=== PATIENT | female | born 1955 | race Caucasian/White ===

== ENCOUNTER 2021-01-05 10:02 | Emergency (ER) | payer OTHER, MEDICARE ==
[2021-01-05] MEDS ORDERED: Iopamidol 370 76% 100 ML VIAL ONE (10:47)
[2021-01-05] MEDS ORDERED: Morphine 10 MG/ML VIAL ONE (11:46)
[2021-01-05 11:48] LABS: #Basophils 0.1 thou/uL (0.0-0.2); #Eosinphils 0.1 thou/uL (0.0-0.7); #Lymphocytes 1.8 thou/uL (1.20-3.40); #Monocytes 0.7 thou/uL (0.11-0.59); #Neutrophils 10.6 thou/uL (1.40-6.50); %Basophils 0.6 % (0.0-1.0); %Eosinophils 0.5 % (0.0-10.0); %Lymphocytes 13.2 % (21.0-51.0); %Monocytes 5.5 % (0.0-10.0); %Neutrophils 80.1 % (42.0-75.0); Hemoglobin 14.1 g/dL (12.0-16.0); Mean Corpuscular HGB CONC 30.4 g/dL (32.0-36.0); Mean Corpuscular Hemoglobin 27.5 pg (27.0-31.0); Mean Corpuscular Volume 90.4 fL (78.0-98.0); Mean Platelet Volume 8.2 fL (7.4-10.4); Platelet Count 275 thou/uL (130-400); RBC Distribution Width 13.5 % (11.5-14.5); Red Blood Cell (RBC) Count 5.11 mill/uL (4.20-5.40); White Blood Cell (WBC) Count 13.3 thou/uL (4.8-10.8)
[2021-01-05 12:04] LABS: ALT (SGPT) 122 U/L (8-55); AST (SGOT) 125 U/L (5-34); Albumin 4.4 g/dL (3.4-4.8); Alkaline Phosphatase 89 U/L (40-110); Anion Gap 19 mmol/L (10-20); BUN (Urea Nitrogen) 13 mg/dL (9.8-20.1); Bilirubin, Total 0.6 mg/dL (0.2-1.2); CK (CPK) 421 U/L (29-168); Calc. Creatinine Clearance 0 mL/min (70-130); Carbon Dioxide 21 mmol/L (23-31); Chloride 102 mmol/L (98-107); Globulin 3.5 g/dL (2.4-3.5); Glucose 129 mg/dL (80-115); Lipase 49 U/L (8-78); Potassium 3.8 mmol/L (3.5-5.1); Protein, Total 7.9 g/dL (5.8-8.1); Sodium 138 mmol/L (136-145)
== END 2021-01-05 13:29 | disposition short-term general hospital (02) ==
LOC: MADERS 10:02
DX: S22.41XA Multiple fractures of ribs, right side, initial encounter for closed fracture (principal); I10 Essential (primary) hypertension; E78.5 Hyperlipidemia, unspecified; Z79.899 Other long term (current) drug therapy; V43.52XA Car driver injured in collision with other type car in traffic accident, initial encounter
CPT/HCPCS: 70450; 71260; 72125; 74177; 80053; 82550; 83690; 85025; 96374; J2270; Q9967

== ENCOUNTER 2021-01-08 20:25 | Inpatient (IN) | payer OTHER, MEDICARE ==
[2021-01-08] MEDS ORDERED: Senokot S 8.6-50 MG TAB PO SCH (21:45)
[2021-01-08] MEDS ORDERED: Atorvastatin Calcium 10 MG TAB PO SCH (21:45)
[2021-01-08] MEDS ORDERED: Gabapentin 300 MG CAP PO SCH (21:45)
[2021-01-08 22:02] VITALS: BMI 44.7
[2021-01-08] MEDS: Cyclobenzaprine 10 MG TAB PO PRN (22:37)
[2021-01-09] MEDS: Acetaminophen 500 MG TAB PO SCH ×4 (00:26→18:15)
[2021-01-09] MEDS: Ibuprofen 400 MG TAB PO SCH ×3 (01:55→18:14)
[2021-01-09 05:47] LABS: Eosinophils 3 % (0-10); Hemoglobin 13.5 g/dL (12.0-16.0); Lymphocytes 35 % (21-51); MDiff Complete? YES; Mean Corpuscular HGB CONC 31.5 g/dL (32.0-36.0); Mean Corpuscular Volume 88.7 fL (78.0-98.0); Mean Platelet Volume 8.1 fL (7.4-10.4); Monocytes 4 % (0-10); Neutrophil 58 % (42-75); Platelet Count 228 thou/uL (130-400); Platelet Morphology Comment Appears Adequate; RBC Distribution Width 12.8 % (11.5-14.5); RBC Morphology Normal; Red Blood Cell (RBC) Count 4.83 mill/uL (4.20-5.40); White Blood Cell (WBC) Count 11.1 thou/uL (4.8-10.8)
[2021-01-09 05:49] LABS: Anion Gap 20 mmol/L (10-20); BUN (Urea Nitrogen) 14 mg/dL (9.8-20.1); Calc. Creatinine Clearance 128 mL/min (70-130); Carbon Dioxide 24 mmol/L (23-31); Chloride 97 mmol/L (98-107); Glucose 106 mg/dL (80-115); Sodium 136 mmol/L (136-145)
[2021-01-09 05:59] LABS: Potassium 4.7 mmol/L (3.5-5.1)
[2021-01-09] MEDS ORDERED: predniSONE 1 MG TAB PO PRN (08:00)
[2021-01-09] MEDS: Polyethylene Glycol 3350 17 GM Packet PO SCH (08:52)
[2021-01-09] MEDS: Senokot S 8.6-50 MG TAB PO SCH ×2 (08:52→23:31)
[2021-01-09] MEDS: traMADol HCl 50 MG TAB PO PRN ×2 (08:53→19:44)
[2021-01-09] MEDS: Gabapentin 300 MG CAP PO SCH ×3 (08:53→21:00)
[2021-01-09] MEDS: Hydrochlorothiazide 25 MG TAB PO SCH (08:53)
[2021-01-09] MEDS ORDERED: CALCIUM/MAGNESIUM PO SCH (09:00)
[2021-01-09] MEDS: Cyclobenzaprine 10 MG TAB PO PRN (09:09)
[2021-01-09] MEDS ORDERED: Lidocaine 5% Patch TD PRN (13:22)
[2021-01-09] MEDS: Atorvastatin Calcium 10 MG TAB PO SCH (21:00)
[2021-01-10] MEDS: Acetaminophen 500 MG TAB PO SCH ×4 (00:37→17:47)
[2021-01-10] MEDS: Ibuprofen 400 MG TAB PO SCH ×3 (02:12→17:48)
[2021-01-10] MEDS: Gabapentin 300 MG CAP PO SCH ×3 (09:18→21:26)
[2021-01-10] MEDS: Polyethylene Glycol 3350 17 GM Packet PO SCH (09:18)
[2021-01-10] MEDS: Senokot S 8.6-50 MG TAB PO SCH ×2 (09:19→21:27)
[2021-01-10] MEDS: Hydrochlorothiazide 25 MG TAB PO SCH (09:19)
[2021-01-10] MEDS: Cyclobenzaprine 10 MG TAB PO PRN (10:32)
[2021-01-10] MEDS ORDERED: Bisacodyl 5 MG TAB PO PRN (15:44)
[2021-01-10] MEDS: traMADol HCl 50 MG TAB PO PRN (21:25)
[2021-01-10] MEDS: Atorvastatin Calcium 10 MG TAB PO SCH (21:27)
[2021-01-11] MEDS: Acetaminophen 500 MG TAB PO SCH ×4 (00:14→17:43)
[2021-01-11] MEDS: Ibuprofen 400 MG TAB PO SCH ×3 (02:11→17:43)
[2021-01-11] MEDS: Cyclobenzaprine 10 MG TAB PO PRN ×3 (03:45→21:50)
[2021-01-11] MEDS: traMADol HCl 50 MG TAB PO PRN (03:45)
[2021-01-11] MEDS: Gabapentin 300 MG CAP PO SCH ×3 (08:34→20:03)
[2021-01-11] MEDS: Hydrochlorothiazide 25 MG TAB PO SCH (08:34)
[2021-01-11] MEDS: Senokot S 8.6-50 MG TAB PO SCH ×2 (08:34→20:03)
[2021-01-11] MEDS: Polyethylene Glycol 3350 17 GM Packet PO SCH (08:35)
[2021-01-11] MEDS: Atorvastatin Calcium 10 MG TAB PO SCH (20:03)
[2021-01-12] MEDS: Acetaminophen 500 MG TAB PO SCH ×4 (00:53→17:45)
[2021-01-12] MEDS: Ibuprofen 400 MG TAB PO SCH ×3 (00:55→17:46)
[2021-01-12] MEDS: traMADol HCl 50 MG TAB PO PRN ×2 (04:06→16:56)
[2021-01-12] MEDS: Senokot S 8.6-50 MG TAB PO SCH ×2 (09:00→20:47)
[2021-01-12] MEDS: Hydrochlorothiazide 25 MG TAB PO SCH (09:00)
[2021-01-12] MEDS: Polyethylene Glycol 3350 17 GM Packet PO SCH (09:00)
[2021-01-12] MEDS: Gabapentin 300 MG CAP PO SCH ×3 (09:17→20:46)
[2021-01-12] MEDS: Atorvastatin Calcium 10 MG TAB PO SCH (20:46)
[2021-01-12] MEDS: Cyclobenzaprine 10 MG TAB PO PRN (20:47)
[2021-01-13] MEDS: Acetaminophen 500 MG TAB PO SCH ×4 (00:55→17:29)
[2021-01-13] MEDS: Ibuprofen 400 MG TAB PO SCH ×3 (03:04→17:28)
[2021-01-13] MEDS: traMADol HCl 50 MG TAB PO PRN ×2 (05:10→19:38)
[2021-01-13] MEDS: Polyethylene Glycol 3350 17 GM Packet PO SCH (09:04)
[2021-01-13] MEDS: Gabapentin 300 MG CAP PO SCH ×3 (09:06→21:21)
[2021-01-13] MEDS: Hydrochlorothiazide 25 MG TAB PO SCH (09:06)
[2021-01-13] MEDS: Senokot S 8.6-50 MG TAB PO SCH ×2 (09:06→21:21)
[2021-01-13] MEDS: Cyclobenzaprine 10 MG TAB PO PRN ×2 (10:48→21:21)
[2021-01-13] MEDS: Atorvastatin Calcium 10 MG TAB PO SCH (21:21)
[2021-01-14] MEDS: Acetaminophen 500 MG TAB PO SCH ×4 (01:07→17:22)
[2021-01-14] MEDS: Ibuprofen 400 MG TAB PO SCH ×3 (03:35→17:23)
[2021-01-14] MEDS: Hydrochlorothiazide 25 MG TAB PO SCH (08:23)
[2021-01-14] MEDS: Senokot S 8.6-50 MG TAB PO SCH ×2 (08:23→21:12)
[2021-01-14] MEDS: Polyethylene Glycol 3350 17 GM Packet PO SCH (08:23)
[2021-01-14] MEDS: Gabapentin 300 MG CAP PO SCH ×3 (08:23→21:12)
[2021-01-14] MEDS: Cyclobenzaprine 10 MG TAB PO PRN ×2 (10:28→21:12)
[2021-01-14] MEDS: Atorvastatin Calcium 10 MG TAB PO SCH (21:12)
[2021-01-15] MEDS: Acetaminophen 500 MG TAB PO SCH ×4 (01:22→17:20)
[2021-01-15] MEDS: Ibuprofen 400 MG TAB PO SCH ×3 (04:37→17:19)
[2021-01-15] MEDS: traMADol HCl 50 MG TAB PO PRN (06:01)
[2021-01-15] MEDS: Hydrochlorothiazide 25 MG TAB PO SCH (08:26)
[2021-01-15] MEDS: Gabapentin 300 MG CAP PO SCH ×3 (08:27→20:26)
[2021-01-15] MEDS: Polyethylene Glycol 3350 17 GM Packet PO SCH (08:28)
[2021-01-15] MEDS: Cyclobenzaprine 10 MG TAB PO PRN ×2 (08:28→20:27)
[2021-01-15] MEDS: Senokot S 8.6-50 MG TAB PO SCH ×2 (08:30→20:27)
[2021-01-15] MEDS ORDERED: Transdermal Patch Removal TOP PRN (13:16)
[2021-01-15] MEDS ORDERED: Lidocaine 5% Patch TD SCH (15:00)
[2021-01-15] MEDS: Atorvastatin Calcium 10 MG TAB PO SCH (20:27)
[2021-01-16] MEDS: Acetaminophen 500 MG TAB PO SCH ×5 (00:44→23:17)
[2021-01-16] MEDS: Ibuprofen 400 MG TAB PO SCH ×3 (02:56→17:43)
[2021-01-16] MEDS ORDERED: Transdermal Patch Removal TOP SCH (03:00)
[2021-01-16] MEDS: Hydrochlorothiazide 25 MG TAB PO SCH (09:28)
[2021-01-16] MEDS: Lidocaine 5% Patch TD SCH (09:28)
[2021-01-16] MEDS: Polyethylene Glycol 3350 17 GM Packet PO SCH (09:28)
[2021-01-16] MEDS: Gabapentin 300 MG CAP PO SCH ×3 (09:29→19:59)
[2021-01-16] MEDS: Senokot S 8.6-50 MG TAB PO SCH ×2 (09:29→19:59)
[2021-01-16] MEDS: Cyclobenzaprine 10 MG TAB PO PRN (09:29)
[2021-01-16] MEDS: Atorvastatin Calcium 10 MG TAB PO SCH (19:59)
[2021-01-16] MEDS: Transdermal Patch Removal TOP SCH (20:00)
[2021-01-17] MEDS: Ibuprofen 400 MG TAB PO SCH ×3 (01:54→17:48)
[2021-01-17] MEDS: Acetaminophen 500 MG TAB PO SCH ×3 (05:28→17:48)
[2021-01-17] MEDS: Gabapentin 300 MG CAP PO SCH ×3 (09:33→21:01)
[2021-01-17] MEDS: Hydrochlorothiazide 25 MG TAB PO SCH (09:33)
[2021-01-17] MEDS: Lidocaine 5% Patch TD SCH (09:34)
[2021-01-17] MEDS: Polyethylene Glycol 3350 17 GM Packet PO SCH (09:34)
[2021-01-17] MEDS: Senokot S 8.6-50 MG TAB PO SCH (09:38)
[2021-01-17] MEDS ORDERED: Senokot S 8.6-50 MG TAB PO PRN (11:18)
[2021-01-17] MEDS: Atorvastatin Calcium 10 MG TAB PO SCH (21:01)
[2021-01-17] MEDS: Transdermal Patch Removal TOP SCH (21:02)
[2021-01-17] MEDS: Cyclobenzaprine 10 MG TAB PO PRN (21:02)
[2021-01-18] MEDS: Acetaminophen 500 MG TAB PO SCH ×3 (01:05→12:04)
[2021-01-18] MEDS: Ibuprofen 400 MG TAB PO SCH ×2 (02:19→09:52)
[2021-01-18] MEDS: traMADol HCl 50 MG TAB PO PRN (05:25)
[2021-01-18] MEDS: Lidocaine 5% Patch TD SCH (08:31)
[2021-01-18] MEDS: Gabapentin 300 MG CAP PO SCH ×2 (08:32→16:03)
[2021-01-18] MEDS: Hydrochlorothiazide 25 MG TAB PO SCH (08:32)
[2021-01-18] MEDS: Polyethylene Glycol 3350 17 GM Packet PO SCH (08:56)
[2021-01-18 09:15] VITALS: BP 129/84; TEMP 97.9
== END 2021-01-18 16:45 | disposition home or self-care (01) | DRG 560 ==
LOC: MADMS 20:25 → UNDOADMIN 21:22
PROVIDERS: ADMIT Family Medicine; ATTEND Family Medicine
DX: S22.41XD Multiple fractures of ribs, right side, subsequent encounter for fracture with routine healing (principal); Z68.42 Body mass index [BMI] 45.0-49.9, adult; E78.5 Hyperlipidemia, unspecified; G47.33 Obstructive sleep apnea (adult) (pediatric); I10 Essential (primary) hypertension; R53.81 Other malaise; E66.9 Obesity, unspecified; V89.2XXD Person injured in unspecified motor-vehicle accident, traffic, subsequent encounter; Z87.891 Personal history of nicotine dependence; Z88.5 Allergy status to narcotic agent; Z79.899 Other long term (current) drug therapy
CPT/HCPCS: 36415; 72100; 80048; 85025

== ENCOUNTER 2021-11-28 09:42 | Emergency (ER) | payer MEDICARE, OTHER ==
[2021-11-28] MEDS ORDERED: Sodium Chloride 0.9% 500 ML ONE (10:36)
[2021-11-28 10:38] LABS: Bilirubin Negative (Negative); Blood, Urine Trace (Negative); Clarity Clear (Clear); Glucose, Urine (Dipstick) Negative (Negative); Ketone, Urine Negative (Negative); Leukocyte Negative (Negative); Nitrite Negative (Negative); Protein, Urine (Dipstick) Negative (Neg-Trace); Urobilinogen 0.2 mg/dL (Less than 2); pH, Urine 6.5 (5.0-9.0)
[2021-11-28 10:39] LABS: Specific Gravity, Urine 1.004 (1.002-1.036)
[2021-11-28 10:53] LABS: Bacteria/HPF Rare-Few HPF (None Seen); RBC/HPF 0-3 HPF (0-3); Squamous Epithelial 0-3 HPF (0-3); WBC/HPF 0-3 HPF (0-3)
[2021-11-28 10:55] LABS: #Basophils 0.1 thou/uL (0.0-0.2); #Lymphocytes 1.6 thou/uL (1.20-3.40); #Monocytes 1.1 thou/uL (0.11-0.59); #Neutrophils 14.3 thou/uL (1.40-6.50); %Basophils 0.6 % (0.0-1.0); %Lymphocytes 9.3 % (21.0-51.0); %Monocytes 6.6 % (0.0-10.0); %Neutrophils 83.4 % (42.0-75.0); Mean Corpuscular HGB CONC 31.3 g/dL (32.0-36.0); Mean Corpuscular Hemoglobin 27.1 pg (27.0-31.0); Mean Corpuscular Volume 86.5 fL (78.0-98.0); Platelet Count 234 thou/uL (130-400); RBC Distribution Width 13.3 % (11.5-14.5); Red Blood Cell (RBC) Count 4.79 mill/uL (4.20-5.40); White Blood Cell (WBC) Count 17.1 thou/uL (4.8-10.8)
[2021-11-28 11:04] LABS: ALT (SGPT) 41 U/L (8-55); AST (SGOT) 21 U/L (5-34); Albumin 4.3 g/dL (3.4-4.8); Alkaline Phosphatase 74 U/L (40-110); Anion Gap 15 mmol/L (10-20); BUN (Urea Nitrogen) 15 mg/dL (9.8-20.1); Bilirubin, Total 1.1 mg/dL (0.2-1.2); Calc. Creatinine Clearance 0 mL/min (70-130); Calcium 8.8 mg/dL (7.8-10.44); Carbon Dioxide 26 mmol/L (23-31); Chloride 100 mmol/L (98-107); Glucose 131 mg/dL (80-115); Potassium 3.6 mmol/L (3.5-5.1); Protein, Total 7.3 g/dL (5.8-8.1); Sodium 137 mmol/L (136-145)
== END 2021-11-28 11:35 | disposition home or self-care (01) ==
LOC: MADERS 09:42
DX: J03.90 Acute tonsillitis, unspecified (principal); E78.5 Hyperlipidemia, unspecified; I10 Essential (primary) hypertension; Z79.899 Other long term (current) drug therapy
CPT/HCPCS: 80053; 81003; 81015; 83605; 85025; 87081; 87430; 87804; 99283; J7030